=== PATIENT | female | born 1945 | race American Indian/Alaskan Native ===

== ENCOUNTER 2016-04-02 17:33 | Emergency (ER) | payer MEDICARE ==
[2016-04-02 22:45] VITALS: BP 155/104
--- NOTE | 2016-04-02 23:17 | Emergency Department Report ---
HPI - General Chief Complaint: Upper Respiratory Infection Time Seen by Provider: 04/02/16 23:05 - HPI HPI: Patient here complaining of cold symptoms says 1 week. Reports nonproductive cough. Denies any chest pain or shortness of breath. Denies any fever or chills. Patient is a history of diabetes and high blood pressure. She is currently taking blood pressure medication. She does have a primary care doctor. ED Past Medical Hx - Past Medical History Previous Medical History?: Yes Hx Hypertension: Yes Hx Diabetes: Yes Additional medical history: Thyroid Disease - Surgical History Past Surgical History?: Yes Additional Surgical History: R shoulder, hiatal hernia repair - Family History Family history: diabetes, hypertension - Social History Smoking Status: Never Smoker Substance Use Type: None - Medications Home Medications: Home Medications Medication Instructions Recorded Confirmed Last Taken Type HYDROcodone/APAP 5-325 [[place] 1 each PO Q6HR PRN #20 tablet 03/25/13 Unknown Rx 5/325 mg] Hydrochlorothiazide [Hctz] 25 mg PO DAILY 03/25/13 03/25/13 03/24/13 09:00 History Lisinopril [Zestril TAB] 20 mg PO DAILY 03/25/13 03/25/13 Unknown History metFORMIN [Glucophage] 1,000 mg PO BID 03/25/13 03/25/13 03/24/13 09:00 History Phenazopyridine [Pyridium] 200 mg PO TID PRN #6 tablet 07/26/13 Unknown Rx Sulfamethoxazole/Trimethoprim 1 each PO BID #10 tablet 07/26/13 Unknown Rx [Bactrim Ds] Clotrimazole [Gyne-Lotrimin] 1 applicator VG QHS #1 cream.appl 07/29/13 Unknown Rx Naproxen Sodium [Aleve] 220 mg PO Q8H PRN #50 tablet 07/29/13 Unknown Rx Azithromycin [Zithromax Z-SHAWANDA] 250 mg PO DAILY #6 tab 04/02/16 Unknown Rx Cetirizine HCl [ZyrTEC] 10 mg PO QDAY #10 capsule 04/02/16 Unknown Rx Fluticasone [Flonase] 1 spray NS QDAY #1 bottle 04/02/16 Unknown Rx guaiFENesin/CODEINE [Robitussin AC] 10 ml PO QHS #70 ml 04/03/16 Unknown Rx ED Review of Systems ROS: Stated complaint: COLD SYMPTOMS Other details as noted in HPI Comment: All other systems reviewed and negative Constitutional: denies: chills, fever Eyes: denies: eye pain ENT: congestion. denies: ear pain, throat pain Respiratory: cough. denies: shortness of breath, SOB with exertion, SOB at rest , stridor, wheezing Cardiovascular: denies: chest pain, palpitations, edema, syncope Gastrointestinal: denies: abdominal pain, nausea, vomiting Skin: denies: rash Neurological: denies: headache, weakness, numbness, paresthesias, confusion Physical Exam - Physical Exam Vital Signs: Vital Signs 04/02/16 04/02/16 19:13 22:42 Temperature 98.3 F 98.8 F Pulse Rate 88 99 H Respiratory 18 20 Rate Blood Pressure 156/103 Blood Pressure 155/104 [Right] O2 Sat by Pulse 98 Oximetry General: This is a 70-year-old female well-nourished well-developed in no acute distress. Physical Exam: Head: Normocephalic atraumatic Mouth: Moist, no pharyngeal exudate or erythema. Uvula is midline and oral airway is patent. No facial swelling. No peritonsillar abscesses. Neck: Supple, no C-spine tenderness, no tracheal deviation. Nontender to palpate. no adenopathy Ears: Bilateral TMs congested without erythema.bilateral EAC without any redness swelling or drainage Eyes: Bilateral pupils equal and reactive to light, bilateral EOM intact. Bilateral conjunctiva with injection. Normal accommodation Nose: Mucosa moist, congested with erythema. Frontal and maxillary sinuses nontender to palpate. Clear nasal drainage. Dry cough Lungs:Clear to auscultate bilaterally no rhonchi wheezes or rales. Normal work of breathing extremity; No CCE. +2 pulses. No neurovascular compromise Cardiovascular: S1-S2, regular rate rhythm. No murmurs. Skin: clean Dry and intact no rash no lesions Psych: Normal mood and behavior ED Course Vital Signs 04/02/16 04/02/16 19:13 22:42 Temperature 98.3 F 98.8 F Pulse Rate 88 99 H Respiratory 18 20 Rate Blood Pressure 156/103 Blood Pressure 155/104 [Right] O2 Sat by Pulse 98 Oximetry - Reevaluation(s) Reevaluation #1: 04/03/16 05:22 Patient received Tylenol 650 mg by mouth in emergency room for sore throat. ED Medical Decision Making - Medical Decision Making ED course: Patient receives Tylenol 650 mg in emergency room for sore throat. The patient as she has upper respiratory tract infection which is usually viral in nature but because her symptoms have been going on for 1 week and she has multiple comorbidities to include diabetes and high blood pressure I will place her on antibiotic and nasal Flonase and she should take Zyrtec. I instructed her that her blood pressure was elevated today so she will need to keep a log and follow up with primary care physician for treatment of chronic diseases. Patient discharged home with prescription for Z-Shawanda, guaifenesin with codeine, Flonase and Zyrtec. Critical care attestation.: If time is entered above; I have spent that time in minutes in the direct care of this critically ill patient, excluding procedure time. ED Disposition Clinical Impression: Cough Upper respiratory tract infection Qualifiers: URI type: unspecified URI Qualified Code(s): J06.9 - Acute upper respiratory infection, unspecified Hypertension Qualifiers: Hypertension type: essential hypertension Qualified Code(s): I10 - Essential ( primary) hypertension Disposition: DISCHARGED TO HOME OR SELFCARE Is pt being admited?: No Does the pt Need Aspirin: No Condition: Stable Instructions: Hypertension (ED), Upper Respiratory Infection (ED), Acute Cough (ED) Additional Instructions: Please keep a log of her blood pressure and follow up with primary care physician. Take medication as prescribed. Prescriptions: guaiFENesin/CODEINE [Robitussin AC] 10 ml PO QHS #70 ml Fluticasone [Flonase] 1 spray NS QDAY #1 bottle Azithromycin [Zithromax Z-SHAWANDA] 250 mg PO DAILY #6 tab Cetirizine HCl [ZyrTEC] 10 mg PO QDAY #10 capsule Referrals: PRIMARY CARE, [Primary Care Provider] - 2-3 Days Forms: Work/School Release Form(ED)
[2016-04-03] MEDS ORDERED: TYLENOL ONE (00:25)
[2016-04-03] MEDS ORDERED: TYLENOL PO ONE (00:26)
== END 2016-04-03 00:41 | disposition home or self-care (01) ==
LOC: ED 17:33
DX: J06.9 Acute upper respiratory infection, unspecified (principal); I10 Essential (primary) hypertension; R05 Cough; E11.9 Type 2 diabetes mellitus without complications
CPT/HCPCS: 99282

== ENCOUNTER 2016-09-18 11:07 | Emergency (ER) | payer MEDICARE ==
[2016-09-18 12:58] LABS: Basophils % (Auto) 0.6 % (0.0-1.8); Eosinophils % (Auto) 1.9 % (0.0-4.3); Hemoglobin 13.5 gm/dl (10.1-14.3); Mean Corpuscular HGB Conc 32 % (30-34); Mean Corpuscular Hemoglobin 28 pg (28-32); Mean Corpuscular Volume 86 fl (79-97); Platelet Count 287 K/mm3 (140-440); Red Blood Count 4.91 M/mm3 (3.65-5.03); Red Cell Distribution Width 14.7 % (13.2-15.2); White Blood Count 7.8 K/mm3 (4.5-11.0)
[2016-09-18 13:08] LABS: Bilirubin,Urine NEG (Negative); Blood,Urine NEG (Negative); Ketones,Urine NEG (Negative); Leukocyte Esterase,Urine NEG (Negative); Mucus,Urine FEW /HPF; Nitrite,Urine NEG (Negative); Protein,Urine <15 mg/dL mg/dL (Negative); Urobilinogen,Urine < 2.0 mg/dL (<2.0)
[2016-09-18 13:14] LABS: Alanine Aminotransferase 7 units/L (7-56); Albumin 4.2 g/dL (3.9-5); Albumin/Globulin Ratio 1.2 %; Alkaline Phosphatase 92 units/L (35-129); Anion Gap 15 mmol/L; BUN/Creatinine Ratio 23.33; Blood Urea Nitrogen 14 mg/dL (7-17); Calcium 9.6 mg/dL (8.4-10.2); Carbon Dioxide 29 mmol/L (22-30); Chloride 91.8 mmol/L (98-107); Glucose 331 mg/dL (65-100); Lipase 28 units/L (13-60); Potassium 3.7 mmol/L (3.6-5.0); Sodium 132 mmol/L (137-145); Total Protein 7.6 g/dL (6.3-8.2)
[2016-09-18] MEDS ORDERED: NACL ONE (21:41)
--- NOTE | 2016-09-18 21:47 | Emergency Department Report ---
ED Abdominal Pain HPI - General Chief Complaint: Abdominal Pain Stated Complaint: RT SIDE PAIN Time Seen by Provider: 09/18/16 21:18 Source: patient Mode of arrival: Ambulatory Limitations: No Limitations - History of Present Illness Initial Comments: 71-year-old female presents to the emergency department complaining of right flank pain. Patient states pain has been constant for 10 days. Pain does not radiate. Initially, the pain was severe with associated nausea. She states that she stopped taking her Invokana and her pain decreased. She now describes the pain as a pinching sensation. She reports her nausea has resolved. She denies fever. There are no other complaints. MD Complaint: flank pain -: Gradual, days(s) (10) Location: R flank Radiation: none Migration to: no migration Severity: moderate Severity scale (0 -10): 6 Quality: other ("pinching") Consistency: constant Improves With: nothing Worsens With: nothing Associated Symptoms: nausea - Related Data Home Medications Medication Instructions Recorded Confirmed Last Taken Hydrochlorothiazide [HCTZ] 25 mg PO DAILY 03/25/13 03/25/13 09/17/16 Lisinopril [Zestril TAB] 20 mg PO DAILY 03/25/13 03/25/13 09/17/16 metFORMIN [Glucophage] 1,000 mg PO BID 03/25/13 03/25/13 09/17/16 Previous Rx's Medication Instructions Recorded Last Taken Type Cetirizine HCl [ZyrTEC] 10 mg PO QDAY #10 capsule 04/02/16 09/17/16 Rx Fluticasone [Flonase] 1 spray NS QDAY #1 bottle 04/02/16 09/17/16 Rx traMADol [Ultram] 50 mg PO Q6HR PRN #20 tablet 09/18/16 Unknown Rx Allergies Allergy/AdvReac Type Severity Reaction Status Date / Time metronidazole [From Flagyl] Allergy Unknown Verified 07/25/13 23:27 Metronidazole HCl Allergy Unknown Verified 07/25/13 23:27 [From Flagyl] Penicillins Allergy Anaphylaxis Verified 03/25/13 02:01 ED Review of Systems ROS: Stated complaint: RT SIDE PAIN Other details as noted in HPI Comment: All other systems reviewed and negative Gastrointestinal: as per HPI (R flank pain), nausea ED Past Medical Hx - Past Medical History Previous Medical History?: Yes Hx Hypertension: Yes Hx Diabetes: Yes Additional medical history: Thyroid Disease - Surgical History Past Surgical History?: Yes Additional Surgical History: R shoulder, hiatal hernia repair - Family History Family history: no significant - Social History Smoking Status: Former Smoker Substance Use Type: Non Opiate Pain, Prescribed - Medications Home Medications: Home Medications Medication Instructions Recorded Confirmed Last Taken Type Hydrochlorothiazide [HCTZ] 25 mg PO DAILY 03/25/13 03/25/13 09/17/16 History Lisinopril [Zestril TAB] 20 mg PO DAILY 03/25/13 03/25/13 09/17/16 History metFORMIN [Glucophage] 1,000 mg PO BID 03/25/13 03/25/13 09/17/16 History Cetirizine HCl [ZyrTEC] 10 mg PO QDAY #10 capsule 04/02/16 09/17/16 Rx Fluticasone [Flonase] 1 spray NS QDAY #1 bottle 04/02/16 09/17/16 Rx traMADol [Ultram] 50 mg PO Q6HR PRN #20 tablet 09/18/16 Unknown Rx ED Physical Exam - General Limitations: No Limitations General appearance: alert, in no apparent distress - Head Head exam: Present: atraumatic, normocephalic - Eye Eye exam: Present: normal appearance, PERRL, EOMI - ENT ENT exam: Present: normal exam, normal orophraynx, mucous membranes moist - Neck Neck exam: Present: normal inspection, full ROM. Absent: tenderness - Respiratory Respiratory exam: Present: normal lung sounds bilaterally. Absent: respiratory distress - Cardiovascular Cardiovascular Exam: Present: regular rate, normal rhythm, normal heart sounds - GI/Abdominal GI/Abdominal exam: Present: soft, normal bowel sounds. Absent: distended, tenderness - Extremities Exam Extremities exam: Present: normal inspection, full ROM. Absent: tenderness - Back Exam Back exam: Present: normal inspection, full ROM. Absent: tenderness, CVA tenderness (R), CVA tenderness (L) - Neurological Exam Neurological exam: Present: alert, oriented X3. Absent: motor sensory deficit - Skin Skin exam: Present: warm, dry, intact ED Course Vital Signs 09/18/16 09/18/16 09/18/16 11:57 20:12 20:53 Temperature 98.4 F 98.5 F Pulse Rate 68 67 Respiratory 18 20 Rate Blood Pressure 176/92 152/92 Blood Pressure [Right] O2 Sat by Pulse 97 98 100 Oximetry 09/18/16 09/18/16 09/18/16 21:01 21:11 21:14 Temperature Pulse Rate 63 59 L Respiratory 14 15 Rate Blood Pressure 161/77 161/77 Blood Pressure 160/80 [Right] O2 Sat by Pulse 98 98 Oximetry 09/18/16 09/18/16 09/18/16 21:21 21:30 22:19 Temperature Pulse Rate 66 65 71 Respiratory 18 15 11 L Rate Blood Pressure 161/76 142/71 Blood Pressure [Right] O2 Sat by Pulse 97 99 100 Oximetry 09/18/16 09/18/16 22:20 22:30 Temperature Pulse Rate 70 67 Respiratory 16 15 Rate Blood Pressure 162/80 146/75 Blood Pressure [Right] O2 Sat by Pulse 99 97 Oximetry ED Medical Decision Making - Lab Data Result diagrams: 09/18/16 12:31 09/18/16 12:31 - Radiology Data Radiology results: report reviewed, image reviewed CT of abdomen and pelvis reveals a small hiatal hernia. There is no acute intra -abdominal abnormality. - Medical Decision Making Lab and imaging results reviewed and discussed with the patient. Patient will be discharged home at this time to follow up with her primary care physician. - Differential Diagnosis abdominal pain, pyelonephritis, kidney stone Critical care attestation.: If time is entered above; I have spent that time in minutes in the direct care of this critically ill patient, excluding procedure time. ED Disposition Clinical Impression: Right flank pain Disposition: DC-01 TO HOME OR SELFCARE Is pt being admited?: No Condition: Stable Instructions: Abdominal Pain (ED) Prescriptions: traMADol [Ultram] 50 mg PO Q6HR PRN #20 tablet PRN Reason: Pain Referrals: HAKEEM SU MD [Primary Care Provider] - 3-5 Days Time of Disposition: 22:56
--- NOTE | 2016-09-18 22:31 | Cat Scan Report ---
FINAL REPORT PROCEDURE: CT abdomen and pelvis with contrast. TECHNIQUE: Computerized axial tomography of the abdomen and pelvis was performed after the IV injection of iodinated nonionic contrast. HISTORY: Right flank pain. COMPARISON: No prior studies are available for comparison. FINDINGS: The lung bases are clear. There are no pleural effusions. The heart size is normal. The liver, spleen and pancreas appear normal. The gallbladder is present. The adrenal glands are not enlarged. Both kidneys appear normal in size and configuration. The abdominal aorta has a normal caliber. There is no retroperitoneal adenopathy. There is a small hiatal hernia. The unopacified gastrointestinal tract is unremarkable. A normal appendix is visible. The bladder, uterus and adnexal regions are unremarkable. The regional skeleton appears intact. There is severe osteoarthritis in the facet joints of the lower lumbar spine. IMPRESSION: Small hiatal hernia. 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 No definite signs of acute disease in the abdomen or pelvis.
[2016-09-18 23:10] VITALS: BP 147/79
== END 2016-09-18 23:11 | disposition home or self-care (01) ==
LOC: ED 11:07
DX: R10.9 Unspecified abdominal pain (principal); I10 Essential (primary) hypertension; E11.9 Type 2 diabetes mellitus without complications; Z87.891 Personal history of nicotine dependence; Z88.8 Allergy status to other drugs, medicaments and biological substances; Z88.0 Allergy status to penicillin
CPT/HCPCS: 36415; 74177; 80053; 81001; 82962; 83690; 85025; 99284; Q9967

== ENCOUNTER 2020-04-15 13:30 | Emergency (ER) | payer MEDICARE ==
[2020-04-15 14:00] VITALS: BP 117/75
--- NOTE | 2020-04-15 14:24 | Event Note ---
ED Screening Note ED Screening Note: pt presents for left neck, left shoulder, and left CP for a week states it feels like an aching she states she has recently had two "colds" no n/v/d no fever no cough no leg swelling states she does have pain with breathing PMHx HTN, DM, hiatal hernia, goiter allergy: PCN This initial assessment/diagnostic orders/clinical plan/treatment(s) is/are subject to change based on patients health status, clinical progression and re- assessment by fellow clinical providers in the ED. Further treatment and workup at subsequent clinical providers discretion. Patient/guardian urged not to elope from the ED as their condition may be serious if not clinically assessed and managed. Initial orders include: CP protocol
--- NOTE | 2020-04-15 14:54 | XRay Report ---
CHEST 2 VIEW INDICATION / CLINICAL INFORMATION: Chest Pain. COMPARISON: 02/22/2018 FINDINGS: SUPPORT DEVICES: None. HEART / MEDIASTINUM: No significant abnormality. LUNGS / PLEURA: Mild pleural-parenchymal disease is present in the left lung base. This appearance is nonspecific but certainly concerning for the possibility of pneumonia with very small parapneumonic effusion. Right lung is grossly clear. No pneumothorax. ADDITIONAL FINDINGS: No significant additional findings. IMPRESSION: 1. Mild left basilar pleural-parenchymal disease. Signer Name: Liz Saravia MD Signed: 04/15/2020 2:49 PM Workstation Name: [id number]
[2020-04-15 15:05] LABS: Basophils # (Auto) 0.1 K/mm3 (0.0-0.1); Basophils % (Auto) 0.8 % (0.0-1.8); Eosinophils # (Auto) 0.1 K/mm3 (0.0-0.4); Eosinophils % (Auto) 1.4 % (0.0-4.3); Hematocrit 38.9 % (30.3-42.9); Hemoglobin 12.9 gm/dl (10.1-14.3); Lymphocytes # (Auto) 2.9 K/mm3 (1.2-5.4); Lymphocytes % (Auto) 30.5 % (13.4-35.0); Mean Corpuscular HGB Conc 33 % (30-34); Mean Corpuscular Volume 88 fl (79-97); Monocytes # (Auto) 0.8 K/mm3 (0.0-0.8); Monocytes % (Auto) 8.5 % (0.0-7.3); Platelet Count 275 K/mm3 (140-440); Red Blood Count 4.41 M/mm3 (3.65-5.03); Red Cell Distribution Width 15.1 % (13.2-15.2)
[2020-04-15 15:15] LABS: INR 1.04 (0.87-1.13); Partial Thromboplastin Time 29.8 Sec. (24.2-36.6)
[2020-04-15 15:21] LABS: Alanine Aminotransferase 7 units/L (7-56); Albumin 3.7 g/dL (3.9-5); Blood Urea Nitrogen 15 mg/dL (7-17); Calcium 9.1 mg/dL (8.4-10.2); Hemolysis Index 2
[2020-04-15 15:27] LABS: BUN/Creatinine Ratio 25
[2020-04-15] MEDS ORDERED: levoFLOXacin 500 MG TAB PO ONE (15:46)
[2020-04-15] MEDS ORDERED: traMADol 50 MG TAB PO ONE (15:46)
--- NOTE | 2020-04-15 16:12 | Emergency Department Report ---
- General Chief Complaint: Chest Pain Stated Complaint: NECK BACK PAINS Time Seen by Provider: 04/15/20 14:20 Source: patient Mode of arrival: Ambulatory Limitations: No Limitations - History of Present Illness Initial Comments: Patient is a 74-year-old F [place] female with a past medical history of hypertension diabetes who is presenting with 2 weeks of cough and congestion. She states she has had cold-like symptoms for this duration. States there is no shortness of breath. Cough is dry. Initially had a slight sore throat but this is resolved. Patient had a COVID-19 test approximately 3 weeks ago which was negative. Patient is not had retesting. Patient is complaining of some discomfort with her cough in the left chest underneath the left breast. States is a little bit of trapezius pain on the left as well. She denies nausea vomiting diarrhea. No subjective fevers or chills. - Related Data Home Medications Medication Instructions Recorded Confirmed Last Taken hydroCHLOROthiazide [HCTZ] 25 mg PO DAILY 03/25/13 03/25/13 09/17/16 lisinopriL [Zestril TAB] 20 mg PO DAILY 03/25/13 03/25/13 09/17/16 metFORMIN [Glucophage] 1,000 mg PO BID 03/25/13 03/25/13 09/17/16 Previous Rx's Medication Instructions Recorded Last Taken Type Cetirizine HCl [ZyrTEC 10mg cap] 10 mg PO QDAY #10 capsule 04/02/16 09/17/16 Rx Fluticasone [Flonase] 1 spray NS QDAY #1 bottle 04/02/16 09/17/16 Rx traMADoL [Ultram] 50 mg PO Q6HR PRN #20 tablet 09/18/16 Unknown Rx Benzonatate [Tessalon Perle] 100 mg PO TID #15 capsule 02/22/18 Unknown Rx Dexchlorpheniram/Phenylephrine 1 each PO Q6H #20 tab 02/22/18 Unknown Rx [Rymed Tablet] Albuterol Mdi (or & Nicu Only) 2 puff IH QID PRN #1 inhalation 04/15/20 Unknown Rx [ProAir HFA Inhaler] Benzonatate [Tessalon Perles] 100 mg PO Q8HR #10 capsule 04/15/20 Unknown Rx levoFLOXacin [Levaquin TAB] 500 mg PO QDAY #7 tablet 04/15/20 Unknown Rx traMADoL [Ultram] 50 mg PO Q6HR PRN #12 tablet 04/15/20 Unknown Rx Allergies Allergy/AdvReac Type Severity Reaction Status Date / Time metronidazole [From Flagyl] Allergy Unknown Verified 07/25/13 23:27 Metronidazole HCl Allergy Unknown Verified 07/25/13 23:27 [From Flagyl] Penicillins Allergy Anaphylaxis Verified 03/25/13 02:01 ED Review of Systems ROS: Stated complaint: NECK BACK PAINS Other details as noted in HPI Comment: All other systems reviewed and negative ED Past Medical Hx - Past Medical History Previous Medical History?: Yes Hx Hypertension: Yes Hx Diabetes: Yes Additional medical history: Thyroid Disease, Fatty tumors left thigh - Surgical History Past Surgical History?: Yes Additional Surgical History: R shoulder, hiatal hernia repair, Cataracts - Social History Smoking Status: Never Smoker Substance Use Type: None - Medications Home Medications: Home Medications Medication Instructions Recorded Confirmed Last Taken Type hydroCHLOROthiazide [HCTZ] 25 mg PO DAILY 03/25/13 03/25/13 09/17/16 History lisinopriL [Zestril TAB] 20 mg PO DAILY 03/25/13 03/25/13 09/17/16 History metFORMIN [Glucophage] 1,000 mg PO BID 03/25/13 03/25/13 09/17/16 History Cetirizine HCl [ZyrTEC 10mg cap] 10 mg PO QDAY #10 capsule 04/02/16 09/17/16 Rx Fluticasone [Flonase] 1 spray NS QDAY #1 bottle 04/02/16 09/17/16 Rx traMADoL [Ultram] 50 mg PO Q6HR PRN #20 tablet 09/18/16 Unknown Rx Benzonatate [Tessalon Perle] 100 mg PO TID #15 capsule 02/22/18 Unknown Rx Dexchlorpheniram/Phenylephrine 1 each PO Q6H #20 tab 02/22/18 Unknown Rx [Rymed Tablet] Albuterol Mdi (or & Nicu Only) 2 puff IH QID PRN #1 inhalation 04/15/20 Unknown Rx [ProAir HFA Inhaler] Benzonatate [Tessalon Perles] 100 mg PO Q8HR #10 capsule 04/15/20 Unknown Rx levoFLOXacin [Levaquin TAB] 500 mg PO QDAY #7 tablet 04/15/20 Unknown Rx traMADoL [Ultram] 50 mg PO Q6HR PRN #12 tablet 04/15/20 Unknown Rx ED Physical Exam - General Limitations: No Limitations General appearance: alert, in no apparent distress - Head Head exam: Present: atraumatic, normocephalic - Eye Eye exam: Present: normal appearance - ENT ENT exam: Present: mucous membranes moist - Neck Neck exam: Present: normal inspection - Respiratory Respiratory exam: Present: normal lung sounds bilaterally. Absent: respiratory distress, wheezes, rales, rhonchi - Cardiovascular Cardiovascular Exam: Present: regular rate, normal rhythm, normal heart sounds. Absent: systolic murmur, diastolic murmur, rubs, gallop - GI/Abdominal GI/Abdominal exam: Present: soft, normal bowel sounds. Absent: distended, tend erness, guarding, rebound, rigid - Extremities Exam Extremities exam: Present: normal inspection - Back Exam Back exam: Present: normal inspection - Neurological Exam Neurological exam: Present: alert, oriented X3 - Psychiatric Psychiatric exam: Present: normal affect, normal mood - Skin Skin exam: Present: warm, dry, intact, normal color. Absent: rash ED Course Vital Signs 04/15/20 13:55 Temperature 99.4 F Pulse Rate 63 Respiratory 18 Rate Blood Pressure 117/75 O2 Sat by Pulse 96 Oximetry ED Medical Decision Making - Lab Data Result diagrams: 04/15/20 14:46 04/15/20 14:46 Lab Results 04/15/20 04/15/20 04/15/20 Range/Units 14:46 14:46 14:46 WBC 9.5 (4.5-11.0) K/mm3 RBC 4.41 (3.65-5.03) M/mm3 Hgb 12.9 (10.1-14.3) gm/dl Hct 38.9 (30.3-42.9) % MCV 88 (79-97) fl MCH 29 (28-32) pg MCHC 33 (30-34) % RDW 15.1 (13.2-15.2) % Plt Count 275 (140-440) K/mm3 Lymph % (Auto) 30.5 (13.4-35.0) % Giles % (Auto) 8.5 H (0.0-7.3) % Eos % (Auto) 1.4 (0.0-4.3) % Baso % (Auto) 0.8 (0.0-1.8) % Lymph # (Auto) 2.9 (1.2-5.4) K/mm3 Giles # (Auto) 0.8 (0.0-0.8) K/mm3 Eos # (Auto) 0.1 (0.0-0.4) K/mm3 Baso # (Auto) 0.1 (0.0-0.1) K/mm3 Seg Neutrophils % 58.8 (40.0-70.0) % Seg Neutrophils # 5.6 (1.8-7.7) K/mm3 PT 13.5 (12.2-14.9) Sec. INR 1.04 (0.87-1.13) APTT 29.8 (24.2-36.6) Sec. Sodium 135 L (137-145) mmol/L Potassium 3.9 (3.6-5.0) mmol/L Chloride 98.8 (98-107) mmol/L Carbon Dioxide 30 (22-30) mmol/L Anion Gap 10 mmol/L BUN 15 (7-17) mg/dL Creatinine 0.6 (0.6-1.2) mg/dL Estimated GFR > 60 ml/min BUN/Creatinine Ratio 25 % Glucose 229 H (65-100) mg/dL Calcium 9.1 (8.4-10.2) mg/dL Total Bilirubin 1.00 (0.1-1.2) mg/dL AST 13 (5-40) units/L ALT 7 (7-56) units/L Alkaline Phosphatase 104 (35-129) units/L Troponin T < 0.010 (0.00-0.029) ng/mL Total Protein 7.6 (6.3-8.2) g/dL Albumin 3.7 L (3.9-5) g/dL Albumin/Globulin Ratio 0.9 % - EKG Data -: EKG Interpreted by Sc EKG shows normal: sinus rhythm, axis, intervals, QRS complexes, ST-T waves Rate: normal - EKG Data Interpretation: [facility] - Radiology Data Patient: BHUPINDER BOATENG MR#: [id number] : 1945 Acct:[id number] Age/Sex: 74 / F ADM Date: 04/15/20 Loc: ED Attending Dr: Ordering Physician: WESLY JIANG Date of Service: 04/15/20 Procedure(s): XR chest routine 2V Accession Number(s): [id number] cc: WESLY JIANG Fluoro Time In Minutes: CHEST 2 VIEW INDICATION / CLINICAL INFORMATION: Chest Pain. COMPARISON: 02/22/2018 FINDINGS: SUPPORT DEVICES: None. HEART / MEDIASTINUM: No significant abnormality. LUNGS / PLEURA: Mild pleural-parenchymal disease is present in the left lung base. This appearance is nonspecific but certainly concerning for the possibility of pneumonia with very small parapneu jane effusion. Right lung is grossly clear. No pneumothorax. ADDITIONAL FINDINGS: No significant additional findings. IMPRESSION: 1. Mild left basilar pleural-parenchymal disease. Signer Name: Liz Saravia MD Signed: 04/15/2020 2:49 PM Workstation Name: [id number] Transcribed By: JR Dictated By: Liz Saravia MD Electronically Authenticated By: Liz Saravia MD Signed Date/Time: 04/15/20 1449 - Medical Decision Making Course the patient may have COVID-19 however the chest x-ray is most consistent with atypical pneumonia likely bacterial. She does not have a widespread bibasilar groundglass opacity type pattern. Patient is not hypoxic at this time. Patient given a dose of Levaquin and will be discharged with Levaquin since his bioavailability is the same as IV. Patient urged to get a second COVID-19 test but will also be given medication for symptomatic relief. Patient discharged home. Critical care attestation.: If time is entered above; I have spent that time in minutes in the direct care of this critically ill patient, excluding procedure time. ED Disposition Clinical Impression: Atypical pneumonia, Suspected 2019 novel coronavirus infection Disposition: DC-01 TO HOME OR SELFCARE Is pt being admited?: No Does the pt Need Aspirin: No Condition: Stable Instructions: COVID-19 Frequently Asked Questions, Community-Acquired Pneumonia, Adult Referrals: PRIMARY CARE, [Primary Care Provider] - 3-5 Days Time of Disposition: 16:14
== END 2020-04-15 16:33 | disposition home or self-care (01) ==
LOC: ED 13:30
DX: J18.9 Pneumonia, unspecified organism (principal); Z20.822 Contact with and (suspected) exposure to COVID-19; I10 Essential (primary) hypertension; E11.9 Type 2 diabetes mellitus without complications; Z98.890 Other specified postprocedural states; Z79.899 Other long term (current) drug therapy; Z88.0 Allergy status to penicillin; Z88.8 Allergy status to other drugs, medicaments and biological substances
CPT/HCPCS: 36415; 71046; 80053; 84484; 85025; 85610; 85730; 93005

== ENCOUNTER 2020-05-23 18:43 | Emergency (ER) | payer MEDICARE ==
[2020-05-23 19:30] VITALS: BP 143/58
--- NOTE | 2020-05-23 20:08 | Emergency Department Report ---
- General Chief Complaint: Upper Respiratory Infection Stated Complaint: COUGHING Time Seen by Provider: 05/23/20 19:44 Source: patient Mode of arrival: Ambulatory Limitations: No Limitations - History of Present Illness Initial Comments: Patient is a 74-year-old female presents emergency room planes of dry cough that began a week ago. She denies any productive cough. She states that her granddaughter was sick with similar symptoms approximately a week before and she got sick shortly after. She denies any nausea, vomiting, diarrhea, fever, abdominal pain, chest pain, shortness of breath, leg swelling. Past medical history of diabetes and hypertension. She is not compliant with the diet for diabetes or hypertension. She has an allergy to Flagyl and penicillin. She s tates that she is a non-smoker. She states that last month she had "walking pneumonia diagnosed in the emergency department". - Related Data Home Medications Medication Instructions Recorded Confirmed Last Taken hydroCHLOROthiazide [HCTZ] 25 mg PO DAILY 03/25/13 03/25/13 09/17/16 lisinopriL [Zestril TAB] 20 mg PO DAILY 03/25/13 03/25/13 09/17/16 metFORMIN [Glucophage] 1,000 mg PO BID 03/25/13 03/25/13 09/17/16 Previous Rx's Medication Instructions Recorded Last Taken Type Cetirizine HCl [ZyrTEC 10mg cap] 10 mg PO QDAY #10 capsule 04/02/16 09/17/16 Rx Fluticasone [Flonase] 1 spray NS QDAY #1 bottle 04/02/16 09/17/16 Rx traMADoL [Ultram] 50 mg PO Q6HR PRN #20 tablet 09/18/16 Unknown Rx Benzonatate [Tessalon Perle] 100 mg PO TID #15 capsule 02/22/18 Unknown Rx Dexchlorpheniram/Phenylephrine 1 each PO Q6H #20 tab 02/22/18 Unknown Rx [Rymed Tablet] Albuterol Mdi (or & Nicu Only) 2 puff IH QID PRN #1 inhalation 04/15/20 Unknown Rx [ProAir HFA Inhaler] Benzonatate [Tessalon Perles] 100 mg PO Q8HR #10 capsule 04/15/20 Unknown Rx levoFLOXacin [Levaquin TAB] 500 mg PO QDAY #7 tablet 04/15/20 Unknown Rx traMADoL [Ultram] 50 mg PO Q6HR PRN #12 tablet 04/15/20 Unknown Rx Benzonatate [Tessalon Perles] 100 mg PO Q8HR PRN #12 capsule 05/23/20 Unknown Rx Cetirizine HCl [ZyrTEC 10mg cap] 10 mg PO DAILY #10 capsule 05/23/20 Unknown Rx guaiFENesin/DEXTROMETHORPHAN 1 each PO Q12HR PRN #12 capsule 05/23/20 Unknown Rx [Coricidin Hbp Chest Isaac-Cough] Allergies Allergy/AdvReac Type Severity Reaction Status Date / Time metronidazole [From Flagyl] Allergy Unknown Verified 07/25/13 23:27 Metronidazole HCl Allergy Unknown Verified 07/25/13 23:27 [From Flagyl] Penicillins Allergy Anaphylaxis Verified 03/25/13 02:01 ED Review of Systems ROS: Stated complaint: COUGHING Other details as noted in HPI Comment: All other systems reviewed and negative ED Past Medical Hx - Past Medical History Previous Medical History?: Yes Hx Hypertension: Yes Hx Diabetes: Yes Additional medical history: Hypothyroid, Fatty tumors left thigh - Surgical History Past Surgical History?: Yes Additional Surgical History: R shoulder, hiatal hernia repair, Cataracts - Social History Smoking Status: Never Smoker Substance Use Type: None - Medications Home Medications: Home Medications Medication Instructions Recorded Confirmed Last Taken Type hydroCHLOROthiazide [HCTZ] 25 mg PO DAILY 03/25/13 03/25/13 09/17/16 History lisinopriL [Zestril TAB] 20 mg PO DAILY 03/25/13 03/25/13 09/17/16 History metFORMIN [Glucophage] 1,000 mg PO BID 03/25/13 03/25/13 09/17/16 History Cetirizine HCl [ZyrTEC 10mg cap] 10 mg PO QDAY #10 capsule 04/02/16 09/17/16 Rx Fluticasone [Flonase] 1 spray NS QDAY #1 bottle 04/02/16 09/17/16 Rx traMADoL [Ultram] 50 mg PO Q6HR PRN #20 tablet 09/18/16 Unknown Rx Benzonatate [Tessalon Perle] 100 mg PO TID #15 capsule 02/22/18 Unknown Rx Dexchlorpheniram/Phenylephrine 1 each PO Q6H #20 tab 02/22/18 Unknown Rx [Rymed Tablet] Albuterol Mdi (or & Nicu Only) 2 puff IH QID PRN #1 inhalation 04/15/20 Unknown Rx [ProAir HFA Inhaler] Benzonatate [Tessalon Perles] 100 mg PO Q8HR #10 capsule 04/15/20 Unknown Rx levoFLOXacin [Levaquin TAB] 500 mg PO QDAY #7 tablet 04/15/20 Unknown Rx traMADoL [Ultram] 50 mg PO Q6HR PRN #12 tablet 04/15/20 Unknown Rx Benzonatate [Tessalon Perles] 100 mg PO Q8HR PRN #12 capsule 05/23/20 Unknown Rx Cetirizine HCl [ZyrTEC 10mg cap] 10 mg PO DAILY #10 capsule 05/23/20 Unknown Rx guaiFENesin/DEXTROMETHORPHAN 1 each PO Q12HR PRN #12 capsule 05/23/20 Unknown Rx [Coricidin Hbp Chest Isaac-Cough] ED Physical Exam - General Limitations: No Limitations General appearance: alert, in no apparent distress - Head Head exam: Present: atraumatic, normocephalic - Eye Eye exam: Present: normal appearance - ENT ENT exam: Present: mucous membranes moist - Respiratory Respiratory exam: Present: normal lung sounds bilaterally. Absent: respiratory distress, wheezes, rales, rhonchi, stridor, chest wall tenderness, accessory muscle use, decreased breath sounds, prolonged expiratory - Cardiovascular Cardiovascular Exam: Present: regular rate, normal rhythm, normal heart sounds. Absent: systolic murmur, diastolic murmur, rubs, gallop - Neurological Exam Neurological exam: Present: alert, oriented X3 - Psychiatric Psychiatric exam: Present: normal affect, normal mood - Skin Skin exam: Present: warm, dry, intact ED Course Vital Signs 05/23/20 19:30 Temperature 99.2 F Pulse Rate 66 Respiratory 16 Rate Blood Pressure 143/58 [Right] O2 Sat by Pulse 97 Oximetry ED Medical Decision Making - Lab Data Result diagrams: 05/23/20 19:56 05/23/20 19:56 Vital Signs 05/23/20 19:30 Temperature 99.2 F Pulse Rate 66 Respiratory 16 Rate Blood Pressure 143/58 [Right] O2 Sat by Pulse 97 Oximetry Lab Results 05/23/20 05/23/20 Range/Units 19:56 19:56 WBC 8.7 (4.5-11.0) K/mm3 RBC 4.70 (3.65-5.03) M/mm3 Hgb 13.9 (10.1-14.3) gm/dl Hct 41.2 (30.3-42.9) % MCV 88 (79-97) fl MCH 30 (28-32) pg MCHC 34 (30-34) % RDW 14.1 (13.2-15.2) % Plt Count 275 (140-440) K/mm3 Lymph % (Auto) 28.2 (13.4-35.0) % [place] % (Auto) 10.8 H (0.0-7.3) % Eos % (Auto) 2.8 (0.0-4.3) % Baso % (Auto) 0.8 (0.0-1.8) % Lymph # (Auto) 2.4 (1.2-5.4) K/mm3 [place] # (Auto) 0.9 H (0.0-0.8) K/mm3 Eos # (Auto) 0.2 (0.0-0.4) K/mm3 Baso # (Auto) 0.1 (0.0-0.1) K/mm3 Seg Neutrophils % 57.4 (40.0-70.0) % Seg Neutrophils # 5.0 (1.8-7.7) K/mm3 Sodium 134 L (137-145) mmol/L Potassium 3.9 (3.6-5.0) mmol/L Chloride 95.5 L (98-107) mmol/L Carbon Dioxide 25 (22-30) mmol/L Anion Gap 17 mmol/L BUN 15 (7-17) mg/dL Creatinine 0.7 (0.6-1.2) mg/dL Estimated GFR > 60 ml/min BUN/Creatinine Ratio 21 % Glucose 394 H (65-100) mg/dL Calcium 9.3 (8.4-10.2) mg/dL Total Bilirubin 0.60 (0.1-1.2) mg/dL AST 17 (5-40) units/L ALT 8 (7-56) units/L Alkaline Phosphatase 110 (35-129) units/L Total Protein 7.8 (6.3-8.2) g/dL Albumin 3.8 L (3.9-5) g/dL Albumin/Globulin Ratio 1.0 % - Radiology Data Radiology results: report reviewed Ordering Physician: WESLY JIANG Date of Service: 05/23/20 Procedure(s): XR chest routine 2V Accession Number(s): [id number] cc: WESLY JIANG Fluoro Time In Minutes: CHEST 2 VIEWS INDICATION / CLINICAL INFORMATION: MAIN. COMPARISON: To 621 FINDINGS: SUPPORT DEVICES: None. HEART / MEDIASTINUM: No significant abnormality. LUNGS / PLEURA: No significant pulmonary or pleural abnormality. No pneumothorax. ADDITIONAL FINDINGS: No significant additional findings. IMPRESSION: No significant abnormality. Signer Name: Kenneth Keys MD FACR Signed: 05/23/2020 8:34 PM Workstation Name: [id number] Transcribed By: MS Dictated By: Kenneth Keys MD Electronically Authenticated By: Kenneth Keys MD Signed Date/Time: 05/23/202033 DD/ 32 TD/TT: Print - Medical Decision Making Patient is a 74-year-old female presents emergency room planes of dry cough that began a week ago. She denies any productive cough. She states that her granddaughter was sick with similar symptoms approximately a week before and she got sick shortly after. She denies any nausea, vomiting, diarrhea, fever, abdominal pain, chest pain, shortness of breath, leg swelling. Past medical history of diabetes and hypertension. She is not compliant with the diet for diabetes or hypertension. She has an allergy to Flagyl and penicillin. She states that she is a non-smoker. She states that last month she had "walking pneumonia diagnosed in the emergency department". Vitals are stable. No tachycardia, no hypoxia, no fever. Breath sounds are clear bilaterally, no wheezing, no rales, no rhonchi. Chest x-ray: No significant abnormality. Labs with no leukocytosis. Patient's blood glucose is 394, patient was eating a rice crispy and drinking a grape soda while in the emergency department, I discussed the importance of lifestyle modifications with patient and the importance of glycemic control and following up with her primary care doctor, I discussed with patient the risk of chronically uncontrolled diabetes including but not limited to loss of eyesight, renal disease, heart disease, etc. symptoms likely related to mild viral URI versus allergies. Patient given prescription for Coricidin, Tessalon Perles, Zyrtec. Advised patient Please take medication as prescribed. Increase your water intake. Please follow the diet for diabetes, low sugar/low carbohydrate diet. Follow-up with your primary care doctor. Return to emergency room for new or worsening symptoms. Critical care attestation.: If time is entered above; I have spent that time in minutes in the direct care of this critically ill patient, excluding procedure time. ED Disposition Clinical Impression: Viral URI with cough, Hyperglycemia Disposition: - TO HOME OR SELFCARE Is pt being admited?: No Does the pt Need Aspirin: No Condition: Stable Instructions: Hyperglycemia, Viral Respiratory Infection, Diabetes Mellitus and Nutrition, Adult Additional Instructions: Please take medication as prescribed. Increase your water intake. Please follow the diet for diabetes, low sugar/low carbohydrate diet. Follow-up with your primary care doctor. Return to emergency room for new or worsening symptoms. Prescriptions: guaiFENesin/DEXTROMETHORPHAN [Coricidin Hbp Chest Isaac-Cough] 1 each PO Q12HR PRN #12 capsule PRN Reason: cough/congestion Benzonatate [Tessalon Perles] 100 mg PO Q8HR PRN #12 capsule PRN Reason: cough Cetirizine HCl [ZyrTEC 10mg cap] 10 mg PO DAILY #10 capsule Referrals: your, primary care doctor [Other] - 2-3 Days Time of Disposition: 21:00 Print Language: RWANDAN
[2020-05-23 20:09] LABS: Basophils # (Auto) 0.1 K/mm3 (0.0-0.1); Basophils % (Auto) 0.8 % (0.0-1.8); Eosinophils # (Auto) 0.2 K/mm3 (0.0-0.4); Eosinophils % (Auto) 2.8 % (0.0-4.3); Hematocrit 41.2 % (30.3-42.9); Hemoglobin 13.9 gm/dl (10.1-14.3); Lymphocytes # (Auto) 2.4 K/mm3 (1.2-5.4); Lymphocytes % (Auto) 28.2 % (13.4-35.0); Mean Corpuscular HGB Conc 34 % (30-34); Mean Corpuscular Volume 88 fl (79-97); Monocytes # (Auto) 0.9 K/mm3 (0.0-0.8); Monocytes % (Auto) 10.8 % (0.0-7.3); Platelet Count 275 K/mm3 (140-440); Red Cell Distribution Width 14.1 % (13.2-15.2)
[2020-05-23 20:32] LABS: Alanine Aminotransferase 8 units/L (7-56); Albumin 3.8 g/dL (3.9-5); Blood Urea Nitrogen 15 mg/dL (7-17); Calcium 9.3 mg/dL (8.4-10.2); Hemolysis Index 14
--- NOTE | 2020-05-23 20:38 | XRay Report ---
CHEST 2 VIEWS INDICATION / CLINICAL INFORMATION: MAIN. COMPARISON: To 621 FINDINGS: SUPPORT DEVICES: None. HEART / MEDIASTINUM: No significant abnormality. LUNGS / PLEURA: No significant pulmonary or pleural abnormality. No pneumothorax. ADDITIONAL FINDINGS: No significant additional findings. IMPRESSION: No significant abnormality. Signer Name: Kenneth Keys MD FACR Signed: 05/23/2020 8:34 PM Workstation Name: [id number]
[2020-05-23 20:50] LABS: BUN/Creatinine Ratio 21
== END 2020-05-23 21:30 | disposition home or self-care (01) ==
LOC: ED 18:43
DX: J06.9 Acute upper respiratory infection, unspecified (principal); B97.89 Other viral agents as the cause of diseases classified elsewhere; E11.65 Type 2 diabetes mellitus with hyperglycemia; R05 Cough; I10 Essential (primary) hypertension; Z98.890 Other specified postprocedural states; Z79.84 Long term (current) use of oral hypoglycemic drugs; Z79.899 Other long term (current) drug therapy; Z88.0 Allergy status to penicillin; Z88.8 Allergy status to other drugs, medicaments and biological substances
CPT/HCPCS: 36415; 71046; 80053; 85025

== ENCOUNTER 2020-09-01 12:31 | Emergency (ER) | payer MEDICARE ==
[2020-09-01 12:42] VITALS: BP 125/83
--- NOTE | 2020-09-01 13:01 | Emergency Department Report ---
ED General Adult HPI - General Chief complaint: Medical Clearance Stated complaint: RX REFILL Time Seen by Provider: 09/01/20 12:48 Source: patient Mode of arrival: Ambulatory Limitations: No Limitations - History of Present Illness Initial comments: Patient is a 75-year-old female presents emergency room with complaints of a medication refill. Patient states that she went to her primary care clinic and reports that it was close due to someone in the clinic having Covid. She states that she does not know the doses of her medications. She states that she goes to the [facility] pharmacy in [facility]. She denies any symptoms at all currently. She denies any pain. She has an allergy to Flagyl and penicillin. I spoke with the pharmacist at [facility] in [place], [place], advised that patient takes losartan hydrochlorothiazide 100 mg / 12.5 mg daily, Synthroid 75 mg daily, glyburide 4 mg twice daily, Farxiga, 10 mg once daily, Ziac 6.25 once daily. - Related Data Home Medications Medication Instructions Recorded Confirmed Last Taken hydroCHLOROthiazide [HCTZ] 25 mg PO DAILY 03/25/13 03/25/13 09/17/16 lisinopriL [Zestril TAB] 20 mg PO DAILY 03/25/13 03/25/13 09/17/16 metFORMIN [Glucophage] 1,000 mg PO BID 03/25/13 03/25/13 09/17/16 Previous Rx's Medication Instructions Recorded Last Taken Type Cetirizine HCl [ZyrTEC 10mg cap] 10 mg PO QDAY #10 capsule 04/02/16 09/17/16 Rx Fluticasone [Flonase] 1 spray NS QDAY #1 bottle 04/02/16 09/17/16 Rx traMADoL [Ultram] 50 mg PO Q6HR PRN #20 tablet 09/18/16 Unknown Rx Benzonatate [Tessalon Perle] 100 mg PO TID #15 capsule 02/22/18 Unknown Rx Dexchlorpheniram/Phenylephrine 1 each PO Q6H #20 tab 02/22/18 Unknown Rx [Rymed Tablet] Albuterol Mdi (or & Nicu Only) 2 puff IH QID PRN #1 inhalation 04/15/20 Unknown Rx [ProAir HFA Inhaler] Benzonatate [Tessalon Perles] 100 mg PO Q8HR #10 capsule 04/15/20 Unknown Rx levoFLOXacin [Levaquin TAB] 500 mg PO QDAY #7 tablet 04/15/20 Unknown Rx traMADoL [Ultram] 50 mg PO Q6HR PRN #12 tablet 04/15/20 Unknown Rx Benzonatate [Tessalon Perles] 100 mg PO Q8HR PRN #12 capsule 05/23/20 Unknown Rx Cetirizine HCl [ZyrTEC 10mg cap] 10 mg PO DAILY #10 capsule 05/23/20 Unknown Rx guaiFENesin/DEXTROMETHORPHAN 1 each PO Q12HR PRN #12 capsule 05/23/20 Unknown Rx [Coricidin Hbp Chest Isaac-Cough] Dapagliflozin Propanediol [Farxiga] 10 mg PO ONCE #30 tablet 09/01/20 Unknown Rx Glimepiride [Amaryl] 4 mg PO BID 30 Days #60 tablet 09/01/20 Unknown Rx Levothyroxine [Synthroid] 75 mcg PO QAM #30 tablet 09/01/20 Unknown Rx Losartan/Hydrochlorothiazide 1 each PO DAILY #30 tablet 09/01/20 Unknown Rx [Losartan-Hctz 100-25 mg Tab] Allergies Allergy/AdvReac Type Severity Reaction Status Date / Time metronidazole [From Flagyl] Allergy Unknown Verified 07/25/13 23:27 Metronidazole HCl Allergy Unknown Verified 07/25/13 23:27 [From Flagyl] Penicillins Allergy Anaphylaxis Verified 03/25/13 02:01 ED Review of Systems ROS: Stated complaint: RX REFILL Other details as noted in HPI Comment: All other systems reviewed and negative ED Past Medical Hx - Past Medical History Previous Medical History?: Yes Hx Hypertension: Yes Hx Diabetes: Yes Additional medical history: Hypothyroid, Fatty tumors left thigh - Surgical History Past Surgical History?: Yes Additional Surgical History: R shoulder, hiatal hernia repair, Cataracts - Social History Smoking Status: Never Smoker Substance Use Type: None - Medications Home Medications: Home Medications Medication Instructions Recorded Confirmed Last Taken Type hydroCHLOROthiazide [HCTZ] 25 mg PO DAILY 03/25/13 03/25/13 09/17/16 History lisinopriL [Zestril TAB] 20 mg PO DAILY 03/25/13 03/25/13 09/17/16 History metFORMIN [Glucophage] 1,000 mg PO BID 03/25/13 03/25/13 09/17/16 History Cetirizine HCl [ZyrTEC 10mg cap] 10 mg PO QDAY #10 capsule 04/02/16 09/17/16 Rx Fluticasone [Flonase] 1 spray NS QDAY #1 bottle 04/02/16 09/17/16 Rx traMADoL [Ultram] 50 mg PO Q6HR PRN #20 tablet 09/18/16 Unknown Rx Benzonatate [Tessalon Perle] 100 mg PO TID #15 capsule 02/22/18 Unknown Rx Dexchlorpheniram/Phenylephrine 1 each PO Q6H #20 tab 02/22/18 Unknown Rx [Rymed Tablet] Albuterol Mdi (or & Nicu Only) 2 puff IH QID PRN #1 inhalation 04/15/20 Unknown Rx [ProAir HFA Inhaler] Benzonatate [Tessalon Perles] 100 mg PO Q8HR #10 capsule 04/15/20 Unknown Rx levoFLOXacin [Levaquin TAB] 500 mg PO QDAY #7 tablet 04/15/20 Unknown Rx traMADoL [Ultram] 50 mg PO Q6HR PRN #12 tablet 04/15/20 Unknown Rx Benzonatate [Tessalon Perles] 100 mg PO Q8HR PRN #12 capsule 05/23/20 Unknown Rx Cetirizine HCl [ZyrTEC 10mg cap] 10 mg PO DAILY #10 capsule 05/23/20 Unknown Rx guaiFENesin/DEXTROMETHORPHAN 1 each PO Q12HR PRN #12 capsule 05/23/20 Unknown Rx [Coricidin Hbp Chest Isaac-Cough] Dapagliflozin Propanediol [Farxiga] 10 mg PO ONCE #30 tablet 09/01/20 Unknown Rx Glimepiride [Amaryl] 4 mg PO BID 30 Days #60 tablet 09/01/20 Unknown Rx Levothyroxine [Synthroid] 75 mcg PO QAM #30 tablet 09/01/20 Unknown Rx Losartan/Hydrochlorothiazide 1 each PO DAILY #30 tablet 09/01/20 Unknown Rx [Losartan-Hctz 100-25 mg Tab] ED Physical Exam - General Limitations: No Limitations General appearance: alert, in no apparent distress - Head Head exam: Present: atraumatic, normocephalic - Eye Eye exam: Present: normal appearance - ENT ENT exam: Present: mucous membranes moist - Respiratory Respiratory exam: Present: normal lung sounds bilaterally. Absent: respiratory distress, wheezes, rales, rhonchi, stridor, chest wall tenderness, accessory muscle use, decreased breath sounds, prolonged expiratory - Cardiovascular Cardiovascular Exam: Present: regular rate, normal rhythm, normal heart sounds. Absent: systolic murmur, diastolic murmur, rubs, gallop - Neurological Exam Neurological exam: Present: alert, oriented X3 - Psychiatric Psychiatric exam: Present: normal affect, normal mood - Skin Skin exam: Present: warm, dry, intact ED Course Vital Signs 09/01/20 12:41 Temperature 98.9 F Pulse Rate 83 Respiratory 18 Rate Blood Pressure 125/83 [Right] O2 Sat by Pulse 100 Oximetry ED Medical Decision Making - Medical Decision Making Patient is a 75-year-old female presents emergency room with complaints of a medication refill. Patient states that she went to her primary care clinic and reports that it was close due to someone in the clinic having Covid. She states that she does not know the doses of her medications. She states that she goes to the [facility] pharmacy in [facility]. She denies any symptoms at all currently. She denies any pain. She has an allergy to Flagyl and penicillin. I spoke with the pharmacist at [facility] pharmacy in [place], [place], advised that patient takes losartan hydrochlorothiazide 100 mg / 12.5 mg daily, Synthroid 75 mg daily, glyburide 4 mg twice daily, Farxiga, 10 mg once daily, Ziac 6.25 once daily. given that patient is already on losartan hctz and is already on a thiazide diuretic will hold off on prescribing ziac at this time. discussed the importance of PCP follow up for management of her chronic con ditions. discussed with Dr. kaveh barajas, ER attending who advised to give pt a 30 day refill of her medication. advised pt Please take medication as prescribed. Increase your fluid intake. Please keep a blood pressure log and take this to your primary care doctor. Please check your blood sugar regularly. Follow-up with your primary care doctor. Return to emergency room for new or worse symptoms. Critical care attestation.: If time is entered above; I have spent that time in minutes in the direct care of this critically ill patient, excluding procedure time. ED Disposition Clinical Impression: Medication refill Disposition: DC-01 TO HOME OR SELFCARE Is pt being admited?: No Does the pt Need Aspirin: No Condition: Stable Additional Instructions: Please take medication as prescribed. Increase your fluid intake. Please keep a blood pressure log and take this to your primary care doctor. Please check your blood sugar regularly. Follow-up with your primary care doctor. Return to emergency room for new or worse symptoms. Prescriptions: Glimepiride [Amaryl] 4 mg PO BID 30 Days #60 tablet Dapagliflozin Propanediol [Farxiga] 10 mg PO ONCE #30 tablet Losartan/Hydrochlorothiazide [Losartan-Hctz 100-25 mg Tab] 1 each PO DAILY #30 tablet Levothyroxine [Synthroid] 75 mcg PO QAM #30 tablet Referrals: ARABELLA PIMENTEL MD [Staff Physician] - 2-3 Days [facility] [Provider Group] - 2-3 Days DONNIE LEVY MD [Staff Physician] - 2-3 Days Time of Disposition: 12:57 Print Language: TURKISH
== END 2020-09-01 13:39 | disposition home or self-care (01) ==
LOC: ED 12:31
DX: I10 Essential (primary) hypertension (principal); E11.9 Type 2 diabetes mellitus without complications; Z76.0 Encounter for issue of repeat prescription; Z98.890 Other specified postprocedural states; Z79.84 Long term (current) use of oral hypoglycemic drugs; Z79.899 Other long term (current) drug therapy; Z88.0 Allergy status to penicillin; Z88.8 Allergy status to other drugs, medicaments and biological substances
CPT/HCPCS: 99281

== ENCOUNTER 2021-01-18 20:57 | Emergency (ER) | payer MEDICARE ==
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
[2021-01-19] MEDS ORDERED: ACETAMINOPHEN 325 MG TAB PO ONE (00:13)
[2021-01-19 00:56] VITALS: BP 117/72
== END 2021-01-19 00:50 | disposition home or self-care (01) ==
LOC: ED 20:57
DX: M54.2 Cervicalgia (principal); M54.6 Pain in thoracic spine; I10 Essential (primary) hypertension; E11.9 Type 2 diabetes mellitus without complications; Z88.8 Allergy status to other drugs, medicaments and biological substances; Z79.899 Other long term (current) drug therapy; Z88.0 Allergy status to penicillin; V87.7XXA Person injured in collision between other specified motor vehicles (traffic), initial encounter; Y93.89 Activity, other specified; Y92.488 Other paved roadways as the place of occurrence of the external cause; Y99.8 Other external cause status
CPT/HCPCS: 72040; 72070; 99284

== ENCOUNTER 2021-05-13 18:16 | Emergency (ER) | payer MEDICARE ==
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
[2021-05-13 21:43] VITALS: BP 113/70
== END 2021-05-13 22:23 | disposition home or self-care (01) ==
LOC: ED 18:16
DX: J06.9 Acute upper respiratory infection, unspecified (principal); I10 Essential (primary) hypertension; E11.9 Type 2 diabetes mellitus without complications; Z88.0 Allergy status to penicillin; Z91.09 Other allergy status, other than to drugs and biological substances
CPT/HCPCS: 82962; 99282

== ENCOUNTER 2021-07-10 21:12 | Emergency (ER) | payer MEDICARE ==
--- NOTE | 2021-07-11 00:48 | XRay Report ---
LEFT TOE(S) 3 VIEW(S) INDICATION / CLINICAL INFORMATION: TOES BLACK; ANY OSTEOMYELITIS COMPARISON: None available. FINDINGS: Narrowing of interphalangeal joints involving multiple toes. Small bony exostoses along distal phalan x great toe and fifth toe. No acute fractures. No specific osseous findings to suggest acute osteomye litis. IMPRESSION: 1. No radiographic findings to clearly suggest osteomyelitis. MRI of the foot may be useful for furth er characterization. Signer Name: Feliz Aguilar II, MD Signed: 07/11/2021 12:43 AM Workstation Name: [id number]
--- NOTE | 2021-07-11 09:39 | Emergency Department Report ---
ED Lower Extremity HPI - General Chief Complaint: Extremity Problem,Nontraumatic Stated Complaint: TOE IS BLACK/DIABETIC Time Seen by Provider: 07/11/21 09:24 Source: patient Mode of arrival: Ambulatory Limitations: No Limitations - History of Present Illness Initial Comments: 76-year-old -[place] female presents to the emergency room complaining of left foot fourth digit toenail discoloration. Patient denies any pain denies any swelling states she is able to move her foot and toes no difficulty walking. She does have a history of diabetes. This she noticed about 9 days ago. - Related Data Previous Rx's Medication Instructions Recorded Last Taken Type Cetirizine HCl [ZyrTEC 10mg cap] 10 mg PO QDAY #10 capsule 04/02/16 09/17/16 Rx Fluticasone [Flonase] 1 spray NS QDAY #1 bottle 04/02/16 09/17/16 Rx Benzonatate [Tessalon Perle] 100 mg PO TID #15 capsule 02/22/18 Unknown Rx Dexchlorpheniram/Phenylephrine 1 each PO Q6H #20 tab 02/22/18 Unknown Rx [Rymed Tablet] Albuterol Mdi (or & Nicu Only) 2 puff IH QID PRN #1 inhalation 04/15/20 Unknown Rx [ProAir HFA Inhaler] Benzonatate [Tessalon Perles] 100 mg PO Q8HR #10 capsule 04/15/20 Unknown Rx Benzonatate [Tessalon Perles] 100 mg PO Q8HR PRN #12 capsule 05/23/20 Unknown Rx Cetirizine HCl [ZyrTEC 10mg cap] 10 mg PO DAILY #10 capsule 05/23/20 Unknown Rx guaiFENesin/DEXTROMETHORPHAN 1 each PO Q12HR PRN #12 capsule 05/23/20 Unknown Rx [Coricidin Hbp Chest Isaac-Cough] Dapagliflozin Propanediol [Farxiga] 10 mg PO ONCE #30 tablet 09/01/20 Unknown Rx Glimepiride [Amaryl] 4 mg PO BID 30 Days #60 tablet 09/01/20 Unknown Rx Levothyroxine [Synthroid] 75 mcg PO QAM #30 tablet 09/01/20 Unknown Rx Losartan/Hydrochlorothiazide 1 each PO DAILY #30 tablet 09/01/20 Unknown Rx [Losartan-Hctz 100-25 mg Tab] Acetaminophen [Tylenol] 650 mg PO Q8HR PRN #20 capsule 01/19/21 Unknown Rx Allergies Allergy/AdvReac Type Severity Reaction Status Date / Time metronidazole [From Flagyl] Allergy Unknown Verified 07/25/13 23:27 Metronidazole HCl Allergy Unknown Verified 07/25/13 23:27 [From Flagyl] Penicillins Allergy Anaphylaxis Verified 03/25/13 02:01 ED Review of Systems ROS: Stated complaint: TOE IS BLACK/DIABETIC Other details as noted in HPI Comment: All other systems reviewed and negative ED Past Medical Hx - Past Medical History Hx Hypertension: Yes Hx Diabetes: Yes Additional medical history: Hypothyroid, Fatty tumors left thigh, hiatal hernia - Surgical History Additional Surgical History: R shoulder, hiatal hernia repair, Cataracts - Social History Smoking Status: Never Smoker Substance Use Type: None - Medications Home Medications: Home Medications Medication Instructions Recorded Confirmed Last Taken Type Cetirizine HCl [ZyrTEC 10mg cap] 10 mg PO QDAY #10 capsule 04/02/16 07/11/21 09/17/16 Rx Fluticasone [Flonase] 1 spray NS QDAY #1 bottle 04/02/16 07/11/21 09/17/16 Rx Benzonatate [Tessalon Perle] 100 mg PO TID #15 capsule 02/22/18 07/11/21 Unknown Rx Dexchlorpheniram/Phenylephrine 1 each PO Q6H #20 tab 02/22/18 07/11/21 Unknown Rx [Rymed Tablet] Albuterol Mdi (or & Nicu Only) 2 puff IH QID PRN #1 inhalation 04/15/20 07/11/21 Unknown Rx [ProAir HFA Inhaler] Benzonatate [Tessalon Perles] 100 mg PO Q8HR #10 capsule 04/15/20 07/11/21 Unknown Rx Benzonatate [Tessalon Perles] 100 mg PO Q8HR PRN #12 capsule 05/23/20 07/11/21 Unknown Rx Cetirizine HCl [ZyrTEC 10mg cap] 10 mg PO DAILY #10 capsule 05/23/20 07/11/21 Unknown Rx guaiFENesin/DEXTROMETHORPHAN 1 each PO Q12HR PRN #12 capsule 05/23/20 07/11/21 Unknown Rx [Coricidin Hbp Chest Isaac-Cough] Dapagliflozin Propanediol [Farxiga] 10 mg PO ONCE #30 tablet 09/01/20 07/11/21 Unknown Rx Glimepiride [Amaryl] 4 mg PO BID 30 Days #60 tablet 09/01/20 07/11/21 Unknown Rx Levothyroxine [Synthroid] 75 mcg PO QAM #30 tablet 09/01/20 07/11/21 Unknown Rx Losartan/Hydrochlorothiazide 1 each PO DAILY #30 tablet 09/01/20 07/11/21 Unknown Rx [Losartan-Hctz 100-25 mg Tab] Acetaminophen [Tylenol] 650 mg PO Q8HR PRN #20 capsule 01/19/21 07/11/21 Unknown Rx ED Physical Exam - General Limitations: No Limitations General appearance: alert, in no apparent distress - Head Head exam: Present: atraumatic, normocephalic - Eye Eye exam: Present: normal appearance - ENT ENT exam: Present: normal external ear exam - Neck Neck exam: Present: normal inspection, full ROM - Respiratory Respiratory exam: Absent: respiratory distress - Cardiovascular Cardiovascular Exam: Present: regular rate - Extremities Exam Extremities exam: Present: full ROM, other (Left foot 4th toenail dark thick, nonerythematous mild tenderness full range of motion). Absent: normal capillary refill - Back Exam Back exam: Present: normal inspection, full ROM ED Course Vital Signs 07/10/21 22:20 Temperature 98.5 F Pulse Rate 74 Respiratory 18 Rate Blood Pressure 142/64 O2 Sat by Pulse 97 Oximetry ED Lower Extremity MDM - Radiology Data Radiology results: report reviewed [facility] [address] [place] [address] XRay Report Signed Patient: BHUPINDER BOATENG MR#: [id number] : 1945 Acct:[id number] Age/Sex: 76 / F ADM Date: 07/10/21 Loc: ED Attending Dr: Ordering Physician: VALERI ZAMBRANO MD Date of Service: 07/10/21 Procedure(s): XR toe(s) 2+V LT Accession Number(s): [id number] cc: VALERI ZAMBRANO MD Fluoro Time In Minutes: LEFT TOE(S) 3 VIEW(S) INDICATION / CLINICAL INFORMATION: TOES BLACK; ANY OSTEOMYELITIS COMPARISON: None available. FINDINGS: Narrowing of interphalangeal joints involving multiple toes. Small bony exostoses along distal phalanx great toe and fifth toe. No acute fractures. No specific osseous findings to suggest acute osteomyelitis. IMPRESSION: 1. No radiographic findings to clearly suggest osteomyelitis. MRI of the foot may be useful for further characterization. Signer Name: Isamar Stern II, MD Signed: 07/11/2021 12:43 AM Workstation Name: [id number] Transcribed By: BETTY Dictated By: ISAMAR STERN II, MD Electronically Authenticated By: ISAMAR STERN II, MD Signed Date/Time: 07/11/2142 DD/ TD/TT: - Medical Decision Making 76-year-old -[place] female presents to the emergency room complaining of left foot fourth digit toenail discoloration. Patient denies any pain denies any swelling states she is able to move her foot and toes no difficulty walking. She does have a history of diabetes. This she noticed about 9 days ago. Patient has been diagnosed with a nail injury of the left foot fourth digit. Discussed with patient the nail will grow out. She can follow-up with her primary care provider. She is stable off stable vital signs. Critical care attestation.: If time is entered above; I have spent that time in minutes in the direct care of this critically ill patient, excluding procedure time. ED Disposition Clinical Impression: Nail, injury by Disposition: 01 HOME / SELF CARE / HOMELESS Is pt being admited?: No Does the pt Need Aspirin: No Condition: Stable Additional Instructions: You can follow-up with your primary care provider. This is just a hematoma or bruising of the skin under the toenail. Referrals: ARABELLA PIMENTEL MD [Primary Care Provider] - 3-5 Days Forms: Work/School Release Form(ED) Time of Disposition: 09:37
[2021-07-11 09:54] VITALS: BP 133/86
== END 2021-07-11 09:54 | disposition home or self-care (01) ==
LOC: ED 21:12
DX: S91.209A Unspecified open wound of unspecified toe(s) with damage to nail, initial encounter (principal); X58.XXXA Exposure to other specified factors, initial encounter; Z88.0 Allergy status to penicillin; Z88.1 Allergy status to other antibiotic agents; E11.9 Type 2 diabetes mellitus without complications; I10 Essential (primary) hypertension; Y93.89 Activity, other specified; Y92.89 Other specified places as the place of occurrence of the external cause; Y99.8 Other external cause status
CPT/HCPCS: 99283

== ENCOUNTER 2021-09-28 23:26 | Emergency (ER) | payer MEDICARE ==
[2021-09-29] MEDS ORDERED: KETOROLAC 30 MG/1 ML INJ IM ONE (06:11)
[2021-09-29] MEDS ORDERED: dexAMETHasone 20 MG/5 ML VIAL IM ONE (06:11)
--- NOTE | 2021-09-29 06:40 | Emergency Department Report ---
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 Patient now complains of 4/10 burning tingling sharp pain. Pain is exacerbated by movement bending and twisting. There is no paralysis. There has been no decrease or loss of bowel or bladder function. Patient did drive self to ED tonight patient is amatory with steady gait patient is with no acute distress. Pain is relieved by rest. There is no focal weakness. MD Complaint: back injury - Related Data Previous Rx's Medication Instructions Recorded Last Taken Type Cetirizine HCl [ZyrTEC 10mg cap] 10 mg PO QDAY #10 capsule 04/02/16 09/17/16 Rx Fluticasone [Flonase] 1 spray NS QDAY #1 bottle 04/02/16 09/17/16 Rx Benzonatate [Tessalon Perle] 100 mg PO TID #15 capsule 02/22/18 Unknown Rx Dexchlorpheniram/Phenylephrine 1 each PO Q6H #20 tab 02/22/18 Unknown Rx [Rymed Tablet] Albuterol Mdi (or & Nicu Only) 2 puff IH QID PRN #1 inhalation 04/15/20 Unknown Rx [ProAir HFA Inhaler] Benzonatate [Tessalon Perles] 100 mg PO Q8HR #10 capsule 04/15/20 Unknown Rx Benzonatate [Tessalon Perles] 100 mg PO Q8HR PRN #12 capsule 05/23/20 Unknown Rx Cetirizine HCl [ZyrTEC 10mg cap] 10 mg PO DAILY #10 capsule 05/23/20 Unknown Rx guaiFENesin/DEXTROMETHORPHAN 1 each PO Q12HR PRN #12 capsule 05/23/20 Unknown Rx [Coricidin Hbp Chest Isaac-Cough] Dapagliflozin Propanediol [Farxiga] 10 mg PO ONCE #30 tablet 09/01/20 Unknown Rx Glimepiride [Amaryl] 4 mg PO BID 30 Days #60 tablet 09/01/20 Unknown Rx Levothyroxine [Synthroid] 75 mcg PO QAM #30 tablet 09/01/20 Unknown Rx Losartan/Hydrochlorothiazide 1 each PO DAILY #30 tablet 09/01/20 Unknown Rx [Losartan-Hctz 100-25 mg Tab] Acetaminophen [Tylenol] 650 mg PO Q8HR PRN #20 capsule 01/19/21 Unknown Rx Acetaminophen [Acetaminophen TAB] 1,000 mg PO Q6HR PRN #60 tablet 09/29/21 Unknown Rx Capsaicin 0.075% [Zostrix Hp 1 applicatio TP TID PRN #1 tube 09/29/21 Unknown Rx 0.075%] Allergies Allergy/AdvReac Type Severity Reaction Status Date / Time metronidazole [From Flagyl] Allergy Unknown Verified 07/25/13 23:27 Metronidazole HCl Allergy Unknown Verified 07/25/13 23:27 [From Flagyl] Penicillins Allergy Anaphylaxis Verified 03/25/13 02:01 ED Review of Systems ROS: Stated complaint: HURT LFT LEG Other details as noted in HPI Constitutional: denies: chills, fever Eyes: denies: eye pain, eye discharge, vision change ENT: denies: ear pain, throat pain Respiratory: denies: cough, shortness of breath, wheezing Cardiovascular: denies: chest pain, palpitations Endocrine: no symptoms reported Gastrointestinal: denies: abdominal pain, nausea, diarrhea Genitourinary: denies: urgency, dysuria, discharge Musculoskeletal: back pain, arthralgia, myalgia Skin: denies: rash, lesions Neurological: denies: headache, weakness, paresthesias Psychiatric: denies: anxiety, depression Hematological/Lymphatic: denies: easy bleeding, easy bruising ED Past Medical Hx - Past Medical History Hx Hypertension: Yes Hx Diabetes: Yes Additional medical history: Hypothyroid, Fatty tumors left thigh, hiatal hernia - Surgical History Additional Surgical History: R shoulder, hiatal hernia repair, Cataracts - Social History Smoking Status: Never Smoker Substance Use Type: None - Medications Home Medications: Home Medications Medication Instructions Recorded Confirmed Last Taken Type Cetirizine HCl [ZyrTEC 10mg cap] 10 mg PO QDAY #10 capsule 01/24/17 05/04/22 07/11/17 Rx Fluticasone [Flonase] 1 spray NS QDAY #1 bottle 04/02/16 07/11/21 09/17/16 Rx Benzonatate [Tessalon Perle] 100 mg PO TID #15 capsule 02/22/18 07/11/21 Unknown Rx Dexchlorpheniram/Phenylephrine 1 each PO Q6H #20 tab 02/22/18 07/11/21 Unknown Rx [Rymed Tablet] Albuterol Mdi (or & Nicu Only) 2 puff IH QID PRN #1 inhalation 04/15/20 07/11/21 Unknown Rx [ProAir HFA Inhaler] Benzonatate [Tessalon Perles] 100 mg PO Q8HR #10 capsule 04/15/20 07/11/21 Unknown Rx Benzonatate [Tessalon Perles] 100 mg PO Q8HR PRN #12 capsule 05/23/20 07/11/21 Unknown Rx Cetirizine HCl [ZyrTEC 10mg cap] 10 mg PO DAILY #10 capsule 05/23/20 07/11/21 Unknown Rx guaiFENesin/DEXTROMETHORPHAN 1 each PO Q12HR PRN #12 capsule 05/23/20 07/11/21 Unknown Rx [Coricidin Hbp Chest Isaac-Cough] Dapagliflozin Propanediol [Farxiga] 10 mg PO ONCE #30 tablet 09/01/20 07/11/21 Unknown Rx Glimepiride [Amaryl] 4 mg PO BID 30 Days #60 tablet 09/01/20 07/11/21 Unknown Rx Levothyroxine [Synthroid] 75 mcg PO QAM #30 tablet 09/01/20 07/11/21 Unknown Rx Losartan/Hydrochlorothiazide 1 each PO DAILY #30 tablet 09/01/20 07/11/21 Unknown Rx [Losartan-Hctz 100-25 mg Tab] Acetaminophen [Tylenol] 650 mg PO Q8HR PRN #20 capsule 01/19/21 07/11/21 Unknown Rx Acetaminophen [Acetaminophen TAB] 1,000 mg PO Q6HR PRN #60 tablet 09/29/21 Unknown Rx Capsaicin 0.075% [Zostrix Hp 1 applicatio TP TID PRN #1 tube 09/29/21 Unknown Rx 0.075%] ED Physical Exam - General Limitations: No Limitations General appearance: alert, in no apparent distress - Head Head exam: Present: normocephalic, normal inspection - Eye Eye exam: Present: normal appearance, PERRL, EOMI Pupils: Present: normal accommodation - ENT ENT exam: Present: mucous membranes moist - Neck Neck exam: Present: normal inspection, full ROM. Absent: tenderness (No posterior vertebral point tenderness. Range of motion intact unrestricted there is no ecchymosis no crepitus no swelling no step-off.), meningismus, lymphadenopathy, thyromegaly - Respiratory Respiratory exam: Present: normal lung sounds bilaterally. Absent: respiratory distress, wheezes, stridor, accessory muscle use - Cardiovascular Cardiovascular Exam: Present: regular rate, normal rhythm, normal heart sounds. Absent: systolic murmur, diastolic murmur, rubs, gallop - GI/Abdominal GI/Abdominal exam: Present: soft, normal bowel sounds. Absent: distended, tenderness, guarding, rebound, rigid, bruit, hernia - Rectal Rectal exam: Present: deferred - Extremities Exam Extremities exam: Present: normal inspection, full ROM, normal capillary refill - Back Exam Back exam: Present: normal inspection, full ROM, muscle spasm, paraspinal tenderness. Absent: vertebral tenderness - Expanded Back Exam Expanded Back exam: Absent: saddle anesthesia Back exam: Sciatic Notch Tenderness: Left, Positive Straight Leg Raise: Left, Negative Straight Leg Raising: Right - Neurological Exam Neurological exam: Present: alert, oriented X3, CN II-XII intact, reflexes normal. Absent: motor sensory deficit - Expanded Neurological Exam Expanded Patient oriented to: Present: person, place, time Speech: Present: fluid speech Motor strength exam: RUE: 5, LUE: 5, RLE: 5, LLE: 5 DTR: knee (R): 1+, knee (L): 1+ Best Eye Response ([place]): (4) open spontaneously Best Motor Response (Rula): (6) obeys commands Best Verbal Response (Rula): (5) oriented Rula Total: 15 - Psychiatric Psychiatric exam: Present: normal affect, normal mood - Skin Skin exam: Present: warm, dry, intact, normal color. Absent: rash ED Course Vital Signs 09/28/21 23:37 Temperature 98.6 F Pulse Rate 65 Respiratory 18 Rate Blood Pressure 165/77 O2 Sat by Pulse 98 Oximetry ED Medical Decision Making - Medical Decision Making This is a low back strain. Symptoms are improved with medication given in ED plan DC to home, take medications as prescribed. Moist heat therapy. Back exercises. Follow-up with your doctor in 2 to 3 days. Return to emergency department should symptoms worsen. Follow-up with Workmen's Comp. doctor as instructed by employer. Critical care attestation.: If time is entered above; I have spent that time in minutes in the direct care of this critically ill patient, excluding procedure time. ED Disposition Clinical Impression: Low back strain Qualifiers: Encounter type: initial encounter Qualified Code(s): S39.012A - Strain of muscle, fascia and tendon of lower back, initial encounter Disposition: HOME / SELF CARE / HOMELESS Is pt being admited?: No Does the pt Need Aspirin: No Condition: Stable Instructions: Low Back Sprain or Strain Rehab-SportsMed, Back Injury Prevention Additional Instructions: Take medications as prescribed, moist heat therapy as directed. Follow-up with your doctor in 2 to 3 days. Return to the emergency department if symptoms worsen. Prescriptions: Acetaminophen [Acetaminophen TAB] 1,000 mg PO Q6HR PRN #60 tablet PRN Reason: pain Capsaicin 0.075% [Zostrix Hp 0.075%] 1 applicatio TP TID PRN #1 tube PRN Reason: pain Referrals: BRENTON POE MD [Staff Physician] - 3-5 Days Forms: Work/School Release Form(ED) Time of Disposition: 06:45
[2021-09-29 06:59] VITALS: BP 162/79
== END 2021-09-29 06:59 | disposition home or self-care (01) ==
LOC: ED 23:26
DX: S39.012A Strain of muscle, fascia and tendon of lower back, initial encounter (principal); I10 Essential (primary) hypertension; E11.9 Type 2 diabetes mellitus without complications; Z88.0 Allergy status to penicillin; Z88.8 Allergy status to other drugs, medicaments and biological substances; X58.XXXA Exposure to other specified factors, initial encounter; Y93.89 Activity, other specified; Y92.89 Other specified places as the place of occurrence of the external cause; Y99.8 Other external cause status
CPT/HCPCS: 96372; 99282; J1100; J1885